=== PATIENT | female | born 2005 | race Hispanic/Latino ===

== ENCOUNTER 2024-09-09 23:41 | Emergency (ER) | payer SELFPAY ==
[~2024-09-09] VITALS: Ht 160 cm; Wt 103.0 kg
[2024-09-10 00:15] LABS: RAPID GROUP A STREP negative (NEGATIVE)
[2024-09-10 00:18] LABS: INFLUENZA TYPE A Negative For Type A (NEGATIVE); INFLUENZA TYPE B Negative For Type B (NEGATIVE)
[2024-09-10 00:43] LABS: SARS-CoV-2, RNA, NAAT NEGATIVE SARS CoV-2 (NEGATIVE)
[2024-09-10 01:28] LABS: BASOPHILS # (AUTO) 0.08 K/uL (0.00-0.20); BASOPHILS % (AUTO) 0.8 % (0.0-5.0); EOSINOPHILS # (AUTO) 0.31 K/uL (0.00-0.70); EOSINOPHILS % (AUTO) 3.1 % (0.0-8.0); HEMATOCRIT 38.6 % (36-48); IMMATURE GRANULOCYTE ABSOLUTE 0.08 K/uL (0-1); LYMPHOCYTES # (AUTO) 1.6 K/uL (1.0-4.8); LYMPHOCYTES % (AUTO) 15.9 % (21.0-51.0); MEAN CORPUSCULAR HGB CONC 30.8 g/dL (32.0-36.0); MEAN CORPUSCULAR VOLUME 81.1 fL (80-100); MONOCYTES # (AUTO) 0.5 K/uL (0.1-1.0); MONOCYTES % (AUTO) 4.7 % (3.0-13.0); NEUTROPHILS # (AUTO) 7.4 K/uL (1.8-7.7); NEUTROPHILS % (AUTO) 74.7 % (40.0-77.0); PLATELET COUNT (AUTO) 286 K/uL (130-400); RED BLOOD CELL COUNT(AUTO) 4.76 MIL/uL (4.00-5.50); RED CELL DISTRIBUTION WIDTH 16.4 % (11.0-15.5); WHITE BLOOD COUNT (AUTO) 9.9 K/uL (4.8-10.8)
[2024-09-10 01:35] LABS: CREATININE 0.7 mg/dL (0.5-1.0)
[2024-09-10 01:38] LABS: POTASSIUM 2.9 mmol/L (3.5-5.1)
[2024-09-10 02:08] LABS: PLATELET MORPHOLOGY LARGE PLTS PRESENT
--- NOTE | 2024-09-10 02:50 | ERN ---
General Chief Complaint: Cough Stated Complaint: C/O COUGH, SORE THROAT, RIB PAIN Time Seen by MD: 23:55 Time Seen by Midlevel: 23:55 Source: patient History of Present Illness Initial Comments Patient is a morbidly obese 19-year-old female presenting to the emergency department with multiple complaints. Patient reports a cough, sore throat, and diffuse chest wall pain. Denies any past medical history. Denies any other concerns. Allergies: Coded Allergies: No Known Allergies (Unverified Allergy, Unknown, 09/09/24) Past Medical History Past Medical History: Anxiety, Depression Past Surgical History: None Female( History) LMP: Aug 27, 2024 ROS Dictation CONSTITUTIONAL: Negative except for HPI HEAD/FACE: Negative except for HPI EENT: Negative except for HPI RESPIRATORY: Negative except for HPI GASTROINTESTINAL/ABDOMINAL: Negative except for HPI GENITOURINARY: Negative except for HPI MUSCULOSKELETAL: Negative except for HPI INTEGUMENTARY: Negative except for HPI NEUROLOGICAL/PSYCH: Negative except for HPI HEMATOLOGIC/LYMPHATIC: Negative except for HPI All Systems Negative, Except as noted above. 13 point review of systems assessed and all negative except for above. Physical Exam Physical Exam Dictation Vital Signs reviewed General Appearance: Alert, oriented x 3, no acute distress, well developed, nourished. Head and Face: non-traumatic. Eyes: PERRL, pink conjunctivas, eyelid no trauma, anterior chamber with arcus senilis. Ears: Pinnas intact and no signs of trauma or erythema ear canals clear and no discharge TM no erythema Nose: No discharge, no bleeding. Oropharynx: Mouth normal, tongue pink, pharynx clear,no erythema, tonsils no exudates, no abscesses noted, mucous membrane moist Neck: Supple, non-tender, no thyromegaly, no masses, no JVD, no bruits Breast:Deferred Chest:No tenderness, no crepitus, no paradoxical movement, no retractions Lungs:Clear, well-ventilated, symmetric, no rales, no wheezing, no rhonchi, no stridor, good breath sounds bilaterally Heart: Regular rate, regular rhythm, no murmur, no gallops Vascular: no peripheral edema, Abdomen: Soft, positive bowel sounds, nondistended, no guarding, nontender, no rebound, no masses no hepatomegaly, no splenomegaly, no Salvador's sign, no hernias. Rectal: Deferred Genital: Deferred Neurological: Normal speech, motor function intact, sensory function intact Musculoskeletal: Neck nontender, full range of motion, back nontender, full range of motion, Extremities: nontender, full range of motion Skin: Color pink, dry, no turgor, no rash, no lacerations, no abrasions, no contusions. Lymphatic: Deferred Results Laboratory and Microbiology Lab and Micro Result Laboratory Tests Test 09/09/24 23:45 09/10/24 01:15 Influenza Type A Antigen Negative For Type A Influenza Type B Antigen Negative For Type B SARS-CoV-2, RNA, NAAT NEGATIVE SARS CoV-2 Group A Streptococcus Rapid negative (NEGATIVE) White Blood Count 9.9 K/uL (4.8-10.8) Red Blood Count 4.76 MIL/uL (4.00-5.50) Hemoglobin 11.9 g/dL (12.0-16.0) L Hematocrit 38.6 % (36-48) Mean Corpuscular Volume 81.1 fL (80-100) Mean Corpuscular Hemoglobin 25.0 pg (27.0-33.0) L Mean Corpuscular Hemoglobin Concent 30.8 g/dL (32.0-36.0) L Red Cell Distribution Width 16.4 % (11.0-15.5) H Platelet Count 286 K/uL (130-400) Mean Platelet Volume 11.3 fL (7.5-10.5) H Immature Granulocyte % (Auto) 0.8 % (0-1) Neutrophils (%) (Auto) 74.7 % (40.0-77.0) Lymphocytes (%) (Auto) 15.9 % (21.0-51.0) L Monocytes (%) (Auto) 4.7 % (3.0-13.0) Eosinophils (%) (Auto) 3.1 % (0.0-8.0) Basophils (%) (Auto) 0.8 % (0.0-5.0) Neutrophils # (Auto) 7.4 K/uL (1.8-7.7) Lymphocytes # (Auto) 1.6 K/uL (1.0-4.8) Monocytes # (Auto) 0.5 K/uL (0.1-1.0) Eosinophils # (Auto) 0.31 K/uL (0.00-0.70) Basophils # (Auto) 0.08 K/uL (0.00-0.20) Absolute Immature Granulocyte (auto 0.08 K/uL (0-1) Nucleated Red Blood Cells 0.0 % (0.0-0.19) Platelet Morphology LARGE PLTS PRESENT Red Blood Cell Morphology ANISO 1+ Sodium Level 135 mmol/L (136-145) L Potassium Level 2.9 mmol/L (3.5-5.1) *L Chloride Level 98 mmol/L (101-111) L Carbon Dioxide Level 32 mmol/L (21-32) Blood Urea Nitrogen 8 mg/dL (7-18) Creatinine 0.7 mg/dL (0.5-1.0) Glomerular Filtration Rate Calc 127 mL/min (>90) Random Glucose 115 mg/dL (70-105) H Total Calcium 9.2 mg/dL (8.5-10.1) Troponin I High Sensitivity < 4 ng/L (4-50) L Serum Test, Qualitative NEGATIVE (NEGATIVE) Labs Reviewed?: Yes MDM MDM: 19-year-old female presenting to the ER with flu-like symptoms. On physical examination lung sounds are clear to auscultation but patient does have a dry cough. She was reporting chest wall pain. Denies any relieving or exacerbating factors. Patient denies any past medical history. Patient was afebrile and nontoxic appearing. We obtained basic labs. CBC is stable. Chemistries reveal hypokalemia. This was replaced with 50 mg of effervescent p.o. and 400 mg of magnesium oxide p.o.. EKG shows no ST elevations. Troponin is negative. Chest x-ray shows no evidence of pneumonia. Respiratory swabs are negative. Patient will be discharged home with supportive management. Differential diagnosis: Pneumonitis, bronchitis, pneumonia, viral illness There are no social concerns with this patient. Prescription drug management Prescriptions will include: None Medical management and examination interpretation discussions were had by me with other qualified healthcare professionals as indicated for the patient's care. ED Course Orders Procedure Category Date Status Time Covid Rna Naat LAB 09/09/24 Complete 23:54 Influenza Type A & B, LAB 09/09/24 Complete Rapid 23:54 Rapid (Group A Strep) LAB 09/09/24 Complete 23:54 Cbc With Differential LAB 09/10/24 Complete 00:50 Basic Metabolic Panel LAB 09/10/24 Complete 00:50 Chest 1vw RAD 09/10/24 Taken 00:50 Troponin I High LAB 09/10/24 Complete Sensitivity 00:50 12 Lead Ekg Tracing- EKG 09/10/24 Logged Technical 00:50 Testing, LAB 09/10/24 Complete Serum Hcg 00:50 Potassium Bicarb/Cit PHA 09/10/24 Complete Ac 25meq (K-Lyte Ta 02:00 Magnesium Oxide PHA 09/10/24 Complete (Mag-Ox) 02:00 Current Medications Medications (Trade) Dose Ordered Sig/Sameer Route PRN Reason Start Time Stop Time Status Last Admin Dose Admin Magnesium Oxide (Mag-Ox) 400 mg ONCE ONCE PO 09/10/24 02:00 09/10/24 02:01 DC Potassium Bicarbonate (K-Lyte Tablet Eff 25 Meq Tablet.eff) 50 meq ONCE ONCE PO 09/10/24 02:00 09/10/24 02:01 DC Vital Signs Date Time Temp Pulse Resp B/P (MAP) Pulse Ox O2 Delivery O2 Flow Rate FiO2 09/09/24 23:44 99.5 111 20 128/76 99 Room Air DX & DISP Disposition: Discharge Departure Impression: Primary Impression: Hypokalemia Condition: Stable Additional Instructions: Your blood work today showed a low potassium level of 2.9. This was replaced in the emergency department. Your cardiac enzyme was negative. Your chest x-ray did not show any evidence of pneumonia or any other acute abnormality. The remainder of your blood work was unremarkable. You tested negative for influenza a, influenza B, COVID-19, and strep. Please follow up with your primary care doctor in 2-3 days for repeat evaluation. Referrals: SELF,REFERRAL (PCP) Time of Disposition: 02:49 I have reviewed the case, and I agree with, Diagnosis and Plan I performed the substantive portion of the visit. I have reviewed and personally made and approve the management plan that is documented in the note by myself or the SAJI. I acknowledge for responsibility for the patient's management plan. TORRES HENDRICKS Sep 10, 2024 02:50
[2024-09-10 03:35] VITALS: BP 116/72; PULSE 88; RESP 16; TEMP 99; O2SAT 99
[2024-09-10] MEDS: MAGNESIUM OXIDE 400 MG TABLET PO ONE (03:35)
[2024-09-10] MEDS: PoTASSium BIcarbonate/CIT AC 25 MEQ TABLET.EFF PO ONE (03:35)
--- NOTE | 2024-09-10 09:59 | HMCIMG ---
CHEST 1VW HISTORY: Chest pain COMPARISON: None FINDINGS: A frontal projection of the chest was obtained. No acute pulmonary infiltrates is seen. The heart is borderline enlarged. Prominent interstitial markings are seen. No evidence of aortic calcification is seen. IMPRESSION: 1. No acute pulmonary infiltrate is seen.
== END 2024-09-10 03:36 | disposition home or self-care (01) ==
LOC: EDH 23:41
DX: E87.6 Hypokalemia (principal); E66.01 Morbid (severe) obesity due to excess calories; F41.9 Anxiety disorder, unspecified; F32.A Depression, unspecified; Z20.822 Contact with and (suspected) exposure to COVID-19
CPT/HCPCS: 36415; 71045; 80048; 84484; 84703; 85025; 87635; 87804; 87880; 99284